=== PATIENT | male | born 1985 | race Caucasian/White ===

== ENCOUNTER 2018-06-21 19:36 | Emergency (ER) | payer OTHER ==
[~2018-06-21] VITALS: Ht 180.3 cm; Wt 86.2 kg
--- NOTE | 2018-06-21 20:13 | PHYS DOC ---
Adult General Chief Complaint Chief Complaint: OTHER COMPLAINTS [facility] HPI Patient is a 33 year old male who presents with [facility] when he was tackled to the ground by security. Patient is in police custody. Patient states he did use heroin and cocaine today. Patient is complaining of bilateral chest pain with expiration, bilateral wrist pain, bilateral rib pain, right shoulder pain, facial pain. Patient does have dried blood on his face from his Nares. Review of Systems Review of Systems Constitutional: Denies fever or chills [] Eyes: Denies change in visual acuity, redness, or eye pain [] HENT: Denies nasal congestion or sore throat [] Respiratory: Denies cough or shortness of breath [] Cardiovascular: No additional information not addressed in HPI [] GI: Denies abdominal pain, nausea, vomiting, bloody stools or diarrhea [] : Denies dysuria or hematuria [] Musculoskeletal: back pain or face, right shoulder, chest, bilateral ribs, bilateral wrists joint pain [] Integument: Denies rash or skin lesions [] Neurologic: Denies headache, focal weakness or sensory changes [] All other systems were reviewed and found to be within normal limits, except as documented in this note. Physical Exam Physical Exam Constitutional: Well developed, well nourished, no acute distress, non-toxic appearance. [] HENT: Normocephalic, atraumatic, bilateral external ears normal, oropharynx moist, no oral exudates, nose normal. [] Eyes: PERRLA, EOMI, conjunctiva normal, no discharge. [] Neck: Normal range of motion, no tenderness, supple, no stridor. [] Cardiovascular:Heart rate regular rhythm, no murmur [] Lungs & Thorax: Bilateral breath sounds clear to auscultation [] Abdomen: Bowel sounds normal, soft, no tenderness, no masses, no pulsatile masses. [] Skin: Warm, dry, no erythema, no rash. [] Back: No tenderness, no CVA tenderness. [] Extremities: Bilateral wrists, bilateral ribs, chest, right shoulder, facial tenderness, no cyanosis, no clubbing, ROM intact, no edema. [] Neurologic: Alert and oriented X 3, normal motor function, normal sensory function, no focal deficits noted. [] Psychologic: Affect normal, judgement normal, mood normal. [] Current Patient Data Vital Signs Vital Signs Date Time Temp Pulse Resp B/P (MAP) Pulse Ox O2 Delivery O2 Flow Rate FiO2 06/21/18 21:22 115 16 136/85 (102) 99 Room Air 06/21/18 19:40 97.8 97.8 EKG EKG [] Radiology/Procedures Radiology/Procedures [] Impressions: [address] [address] IMAGING REPORT Signed PATIENT: JAIRON GARNER ACCOUNT: [id number] : 1985 LOCATION: ER AGE: 33 SEX: M EXAM STATUS: REG ER ORD. PHYSICIAN: DEXTER RAINEY APRN REASON: pain PROCEDURE: WRIST BILAT 3V Bilateral wrist 3 views each HISTORY: Pain Right wrist 3 views were taken of the right wrist. There is arthritis at the second medical carpal phalangeal joint with mild joint space narrowing and spurring. There is no fracture or acute osseous abnormality. Left wrist 3 views were taken the left wrist. There is not evidence of an acute fracture or osseous abnormality. IMPRESSION: 1. Negative left wrist. 2. 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 3. Otherwise negative right wrist. Electronically signed by: Jefferson Castanon MD (06/21/2018 9:29 PM) [id number] DICTATED and SIGNED BY: JEFFERSON CASTANON MD DATE: 06/21/182128 [address] [id number] IMAGING REPORT Signed PATIENT: JAIRON GARNER ACCOUNT: [id number] : 1985 LOCATION: ER AGE: 33 SEX: M EXAM STATUS: REG ER ORD. PHYSICIAN: DEXTER RAINEY APRN REASON: pain PROCEDURE: SHOULDER 2+V RIGHT Right shoulder 3 views. HISTORY: Pain 3 views were taken of the right shoulder. There is not evidence of a fracture or dislocation or acute osseous abnormality. IMPRESSION: 1. Negative right shoulder. Electronically signed by: Jefferson Castanon MD (06/21/2018 9:35 PM) [facility] DICTATED and SIGNED BY: JEFFERSON CASTNAON MD DATE: 06/21/182134 [place] [id number] IMAGING REPORT Signed PATIENT: JAIRON GARNER ACCOUNT: [id number] : 1985 LOCATION: ER AGE: 33 SEX: M EXAM STATUS: REG ER ORD. PHYSICIAN: DEXTER RAINEY APRN REASON: pain PROCEDURE: RIBS BILAT 3V PA and lateral chest, bilateral ribs AP and oblique views HISTORY: Injury, pain PA and lateral views were taken of the chest. There is no pneumothorax or pleural effusion. Lungs are clear. Heart is normal in size. Mediastinum is not widened. AP and oblique views were taken of the ribs bilaterally. A rib fracture or acute osseous abnormality is not identified in the ribs on either side. IMPRESSION: 1. Negative bilateral ribs. 2. No acute chest disease. Electronically signed by: Jefferson Castanon MD (06/21/2018 9:44 PM) [facility] DICTATED and SIGNED BY: JEFFERSON CASTANON MD DATE: 06/21/182143 [address] [address] IMAGING REPORT Signed PATIENT: JAIRON GARNER ACCOUNT: [id number] : 1985 LOCATION: ER AGE: 33 SEX: M EXAM STATUS: REG ER ORD. PHYSICIAN: DEXTER RAINEY APRN REASON: injury, pain 15 PROCEDURE: CT HEAD AND CERVICAL SPINE WO CT brain without contrast, CT maxillofacial without contrast, CT cervical spine. HISTORY: Injury, pain CT scan of brain was done without contrast. A skull fracture is not identified. There is no mass or shift of the midline. There is no intracranial hemorrhage. Ventricles are normal in size. An acute CVA is not identified. IMPRESSION: 1. No intracranial hemorrhage or mass or acute finding noted. End impression Maxillofacial CT CT images were obtained to the facial bones. Sagittal and coronal reconstructed images were reviewed. There is mucosal thickening in the left maxillary sinus. Remaining sinuses are clear. There is no facial fracture noted. Orbits appear intact. Mandible is intact. A nasal fracture is not identified. An orbital fracture is not identified. There are small bilateral colt bullosa. The ostiomeatal complex is clear on the right with mild mucosal thickening on the left. IMPRESSION: 1. No facial fracture noted. 2. Mucosal thickening left maxillary sinus. End impression CT cervical spine Axial CT images were obtained to the cervical spine. Sagittal and coronal reconstructed images were reviewed. A C-spine fracture is not identified. There is no focal disc protrusion. Thyroid is homogeneous. C-spine is in normal alignment. Disc spaces are normal in height. There is mild thoracic scoliosis. IMPRESSION: 1. No acute fractures noted in the cervical spine. PQRS Compliance Statement: One or more of the following individualized dose reduction techniques were utilized for this examination: 1. Automated exposure control 2. Adjustment of the mA and/or kV according to patient size 3. Use of iterative reconstruction technique Electronically signed by: Jefferson Castanon MD (06/21/2018 10:00 PM) [facility] DICTATED and SIGNED BY: JEFFERSON CASTANON MD DATE: 06/21/182199 Course & Med Decision Making Course & Med Decision Making Patient is a 33 year old male who presents with [facility] when he was tackled to the ground by security. Patient is in police custody. Patient states he did use heroin and cocaine today. Patient is complaining of bilateral chest pain with expiration, bilateral wrist pain, bilateral rib pain, right shoulder pain, facial pain. Patient does have dried blood on his face from his Nares. Alert and oriented. Denies LOC, nausea, dizziness, head pain, shortness of breath. Speaks in full clear sentences. Skin pink warm and dry. Pain and chest is reproducible bilaterally is no crepitus or deformities felt. Pain in bilateral ribs without crepitus with palpation but no deformities felt. Abdomen is soft and nontender. There is no cervical spine pain and he has intact range of motion of his neck. No deformities or pain seen or felt and cervical spine or thoracic spine. Patient denies any thoracic or lumbar spine pain. Patient can move all extremities with equal strength and has equal operations manager/coordinator. Patient states he has tenderness in his wrists on anterior and dorsal aspects with palpation but there is no swelling, bruising, deformities seen or felt. Lungs are clear to auscultation but he does have some wheezing to upper lobes bilaterally. Patient rates his overall pain a 9 out of 10. PERRLA. Neurologically intact. Patient only has some abrasions to his bilateral knuckles but no lacerations or bleeding. There is no bruising or swelling to the face. There is pain with palpation to nasal bones. Patient denies any visual changes. All xrays show no acute findings. All CT scans show no acute findings. Patient is discharged back into police custody. Patient to follow-up with a primary care provider if needed she'll take ibuprofen for pain. Dragon Disclaimer Dragon Disclaimer This electronic medical record was generated, in whole or in part, using a voice recognition dictation system. Departure Departure Impression: Primary Impression: Facial contusion Additional Impressions: Wrist contusion Chest pain Shoulder contusion Bilateral contusion of ribs Disposition: HOME, SELF-CARE Condition: STABLE Patient Instructions: Contusion Additional Instructions: Follow up with primary care if needed. Problem Qualifiers Primary Impression: Facial contusion Encounter type: initial encounter Qualified Codes: S00.83XA - Contusion of other part of head, initial encounter Additional Impressions: Wrist contusion Encounter type: initial encounter Laterality: unspecified laterality Qualified Codes: S60.219A - Contusion of unspecified wrist, initial encounter Chest pain Chest pain type: unspecified Qualified Codes: R07.9 - Chest pain, unspecified Shoulder contusion Encounter type: initial encounter Laterality: right Qualified Codes: S40.011A - Contusion of right shoulder, initial encounter DEXTER RAINEY APRN Jun 21, 2018 20:13
--- NOTE | 2018-06-21 21:32 | RAD ---
Bilateral wrist 3 views each HISTORY: Pain Right wrist 3 views were taken of the right wrist. There is arthritis at the second medical carpal phalangeal joint with mild joint space narrowing and spurring. There is no fracture or acute osseous abnormality. Left wrist 3 views were taken the left wrist. There is not evidence of an acute fracture or osseous abnormality. IMPRESSION: 1. Negative left wrist. 2. 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 3. Otherwise negative right wrist. Electronically signed by: Jefferson Cline MD (06/21/2018 9:29 PM) [facility]
--- NOTE | 2018-06-21 21:38 | RAD ---
Right shoulder 3 views. HISTORY: Pain 3 views were taken of the right shoulder. There is not evidence of a fracture or dislocation or acute osseous abnormality. IMPRESSION: 1. Negative right shoulder. Electronically signed by: Jefferson Cline MD (06/21/2018 9:35 PM) [facility]
--- NOTE | 2018-06-21 21:47 | RAD ---
PA and lateral chest, bilateral ribs AP and oblique views HISTORY: Injury, pain PA and lateral views were taken of the chest. There is no pneumothorax or pleural effusion. Lungs are clear. Heart is normal in size. Mediastinum is not widened. AP and oblique views were taken of the ribs bilaterally. A rib fracture or acute osseous abnormality is not identified in the ribs on either side. IMPRESSION: 1. Negative bilateral ribs. 2. No acute chest disease. Electronically signed by: Jefferson Cline MD (06/21/2018 9:44 PM) [id number]
--- NOTE | 2018-06-21 22:03 | RAD ---
CT brain without contrast, CT maxillofacial without contrast, CT cervical spine. HISTORY: Injury, pain CT scan of brain was done without contrast. A skull fracture is not identified. There is no mass or shift of the midline. There is no intracranial hemorrhage. Ventricles are normal in size. An acute CVA is not identified. IMPRESSION: 1. No intracranial hemorrhage or mass or acute finding noted. End impression Maxillofacial CT CT images were obtained to the facial bones. Sagittal and coronal reconstructed images were reviewed. There is mucosal thickening in the left maxillary sinus. Remaining sinuses are clear. There is no facial fracture noted. Orbits appear intact. Mandible is intact. A nasal fracture is not identified. An orbital fracture is not identified. There are small bilateral colt bullosa. The ostiomeatal complex is clear on the right with mild mucosal thickening on the left. IMPRESSION: 1. No facial fracture noted. 2. Mucosal thickening left maxillary sinus. End impression CT cervical spine Axial CT images were obtained to the cervical spine. Sagittal and coronal reconstructed images were reviewed. A C-spine fracture is not identified. There is no focal disc protrusion. Thyroid is homogeneous. C-spine is in normal alignment. Disc spaces are normal in height. There is mild thoracic scoliosis. IMPRESSION: 1. No acute fractures noted in the cervical spine. PQRS Compliance Statement: One or more of the following individualized dose reduction techniques were utilized for this examination: 1. Automated exposure control 2. Adjustment of the mA and/or kV according to patient size 3. Use of iterative reconstruction technique Electronically signed by: Jefferson Cline MD (06/21/2018 10:00 PM) [facility]
[2018-06-21] MEDS ORDERED: IBUPROFEN 400 MG TABLET. PO ONE ×3 (22:15→22:59)
[2018-06-21] MEDS ORDERED: IBUPROFEN 200 MG TABLET. PO ONE (22:37)
[2018-06-21 23:06] VITALS: BP 137/90
== END 2018-06-21 23:42 | disposition home or self-care (01) ==
LOC: ER 19:36
DX: S20.212A Contusion of left front wall of thorax, initial encounter (principal); S20.211A Contusion of right front wall of thorax, initial encounter; S60.212A Contusion of left wrist, initial encounter; S60.211A Contusion of right wrist, initial encounter; S40.011A Contusion of right shoulder, initial encounter; S00.83XA Contusion of other part of head, initial encounter; R07.89 Other chest pain; Y04.0XXA Assault by unarmed brawl or fight, initial encounter; Y93.89 Activity, other specified; Y92.59 Other trade areas as the place of occurrence of the external cause; Y99.8 Other external cause status
CPT/HCPCS: 70450; 70486; 71046; 71110; 72125; 73030; 73110; 99284-25